=== PATIENT | male | born 1975 | race Caucasian/White ===

== ENCOUNTER → 2018-01-19 | Outpatient (CLI) | payer OTHER ==
[~2018-01-19] MED LIST: CELEBREX100 MG PO; NO RECUERDA; SKELAXIN800 MG PO
== END | disposition home or self-care (01) ==
LOC: MRI 07:42
DX: C22.1 Intrahepatic bile duct carcinoma (principal); D13.5 Benign neoplasm of extrahepatic bile ducts
CPT/HCPCS: 74183

== ENCOUNTER 2018-06-21 14:30 | Emergency (ER) | payer OTHER ==
[~2018-06-21] VITALS: Ht 177.8 cm; Wt 95.3 kg
== END 2018-06-21 22:10 | disposition home or self-care (01) ==
LOC: ER 14:30 → CPU-OBS 15:08 → ER 15:08
DX: R07.89 Other chest pain (principal)
CPT/HCPCS: G0378; G0379; 93005

== ENCOUNTER 2019-04-03 11:03 | Outpatient (CLI) | payer OTHER | END 2019-04-03 15:28 | disposition home or self-care (01) | LOC: TOM 11:03 | DX: K57.30 Diverticulosis of large intestine without perforation or abscess without bleeding (principal) ==

== ENCOUNTER 2021-12-22 08:49 | Outpatient (CLI) | payer OTHER | END 2021-12-22 09:06 | disposition home or self-care (01) | LOC: LAB 08:49 | PROVIDERS: ATTEND Internal Medicine | DX: E78.00 Pure hypercholesterolemia, unspecified (principal); E55.9 Vitamin D deficiency, unspecified; E54 Ascorbic acid deficiency; D51.8 Other vitamin B12 deficiency anemias; R94.5 Abnormal results of liver function studies; Z12.11 Encounter for screening for malignant neoplasm of colon; N40.0 Benign prostatic hyperplasia without lower urinary tract symptoms; E04.1 Nontoxic single thyroid nodule ==